=== PATIENT | female | born 2000 | race Two or more races ===

== ENCOUNTER 2024-09-05 18:08 | Emergency (ER) | payer BC, SELFPAY ==
[2024-09-05 18:10] VITALS: BMI 35.4
[2024-09-05 18:14] VITALS: BP 122/82; PULSE 79; RESP 16; TEMP 36.8; O2SAT 98
--- NOTE | 2024-09-05 18:18 | XR_ITS ---
EXAMINATION: Ankle, left 3 views . Technique: Ankle AP, oblique, lateral 3 views Date and time of exam: September 05, 2024 1842 hours INDICATIONS: Patient fell today with injury to the ankle, ankle pain. FINDINGS: Lateral malleolar soft tissue swelling No acute fracture No ankle dislocation IMPRESSION: No acute fracture
--- NOTE | 2024-09-05 18:18 | PD.EDANKLE ---
Lower Extremity Injury RME/HPI General Chief Complaint: Ankle/Foot Injury Stated Complaint: L ANKLE INJURY Time Seen by Provider: 09/05/24 18:10 Arrival date/time: 09/05/24 18:08 RME / HPI RME / HPI Narrative: 24-year-old female presents to the ED with a complaint of left ankle pain secondary to twisting her ankle in a pothole earlier this morning. She denies previous injury to the ankle. She is unable to bear weight. She does have numbness and tingling to her toes. She denies any other injuries. Related Data Previous Rx's ?Medication ?Instructions ?Recorded ibuprofen 600 mg tablet 600 mg PO TID PRN pain #30 tabs 09/05/24 Allergies Allergy/AdvReac Type Severity Reaction Status Date / Time No Known Allergies Allergy Verified 09/05/24 18:09 Review of Systems Review of Systems Systems Reviewed: All systems reviewed, normal except as documented Past Medical History Past Medical History NEUROLOGIC: Negative Neurological Disorders or Seizures CARDIAC: Negative Cardiac Disorders or Congestive Heart Failure RESPIRATORY: Negative Chronic Obstructive Pulmonary Disease (COPD) GASTROINTESTINAL: Negative Gastrointestinal Disorders GENITOURINARY: Negative Genitourinary Disorders or Renal Disease MUSCULOSKELETAL: Negative Musculoskeletal Disorders ENDOCRINE: Negative Endocrine Disorders, Diabetes Mellitus Type 1 or Diabetes Mellitus Type 2 HEMATOLOGIC: Negative Blood Disorders OTHER HISTORY: Negative Hospitalization, Autoimmune Disease, Shingles, Falls, Blood Transfusions, Blood Transfusion Reaction or Anesthesia Reactions Family History FAMILY HISTORY: Negative Family Psychiatric Problems, Family Respiratory Disorders, Family Cardiac Disorders, Family Gastrointestinal Problems, Family Cancer, Family Surgery or Family Anesthesia Reaction Social History SMOKING STATUS: Never smoker ED Exam Narrative Physical exam: Alert and oriented 25-year-old female, no acute distress, sitting in wheelchair. Left distal tib-fib tenderness on the left. Tenderness to medial and lateral malleolus. Positive pain with inversion and eversion of the ankle. Positive pain with plantarflexion, dorsiflexion. No tenderness to palpation of the foot or toes of the left foot. Course Course Course Narrative: 24-year-old female presents to the ED with a complaint of left ankle pain secondary to twisting her ankle in a pothole earlier this morning. She denies previous injury to the ankle. She is unable to bear weight. She doAlert and oriented 25-year-old female, no acute distress, sitting in wheelchair. Left distal tib-fib tenderness on the left. Tenderness to medial and lateral malleolus. Positive pain with inversion and eversion of the ankle. Positive pain with plantarflexion, dorsiflexion. No tenderness to palpation of the foot or toes of the left foot.x-rays obtained of the left ankle es have numbness and tingling to her toes. She denies any other injuries. X-rays obtained of the left ankle. FINDINGS: Lateral malleolar soft tissue swelling. No acute fracture. No ankle dislocation. IMPRESSION: No acute fracture Patient given Motrin 600mg PO. Quality Measures none Orders Category Date Time Status jamie wrap [Splint / Immobilizer] STAT Care 09/05/24 20:22 Active XR ankle comp LT min 3V Stat Exams 09/05/24 18:18 Completed Ibuprofen Tab [Motrin Tab] Med 09/05/24 18:18 Discontinued 600 mg PO X1 ONE Vital Signs Vital signs: Vital Signs Temperature 98.3 F 09/05/24 18:14 Pulse Rate 79 09/05/24 18:14 Respiratory Rate 16 09/05/24 18:14 Blood Pressure 122/82 09/05/24 18:14 Pulse Oximetry (%) 98 09/05/24 18:14 Oxygen Delivery Method Room Air 09/05/24 18:14 Extremity Injury, Lower MDM Narrative MDM Narrative:: 24-year-old female presents to the ED with a complaint of left ankle pain secondary to twisting her ankle in a pothole earlier this morning. She denies previous injury to the ankle. She is unable to bear weight. She doAlert and oriented 25-year-old female, no acute distress, sitting in wheelchair. Left distal tib-fib tenderness on the left. Tenderness to medial and lateral malleolus. Positive pain with inversion and eversion of the ankle. Positive pain with plantarflexion, dorsiflexion. No tenderness to palpation of the foot or toes of the left foot.x-rays obtained of the left ankle es have numbness and tingling to her toes. She denies any other injuries. X-rays obtained of the left ankle. FINDINGS: Lateral malleolar soft tissue swelling. No acute fracture. No ankle dislocation. IMPRESSION: No acute fracture. Patient given Motrin 600mg PO. Jamie wrap applied to left ankle. Patient has own crutches. Patient data External records reviewed:: None Clinical information provided by:: patient Social determinants that could affect healthcare access:: none Patient has the following chronic illnesses:: None How is presenting disease/condition affected by chronic disease/condition?: no chronic disease Evaluation data The following diagnostics were reviewed and interpreted by me:: radiology exam(s) Lab and/or radiology exams considered but not ordered:: N/A Interpretation Summary: XR left Ankle: FINDINGS: Lateral malleolar soft tissue swelling. No acute fracture. No ankle dislocation. IMPRESSION: No acute fracture Medications / Prescriptions Medications or Prescriptions considered but not ordered:: N/A Medication administrations:: Medication Administration History Discontinued Medications Ibuprofen (Ibuprofen Tab 600 Mg Tablet) 600 mg PO X1 ONE Stop: 09/05/24 18:19 Last Admin: 09/05/24 20:02 Dose: Not Given Documented By: ОЛЬГА Non-Admin Reason: Patient Refused Motrin 600 mg 1 tab p.o. Consultations Consultation(s) initiated? (list below): No Diagnosis Extremity Injury, Lower Differential Diagnosis: ankle sprain and strain and ankle fracture Most likely diagnosis given after review of the tests above:: Ankle sprain/strain Admission Indicated Admission indicated?: not indicated Explain why admission is indicated or not indicated:: Patient is stable for discharge Admission Request Was there a request for admission?: No Disposition Plan Disposition Plan: Discharge Discharge Attestation Discharge Attestation: The patient and all family members were given an opportunity to ask questions and understood the discharge instructions. Discharge instructions specifically effects, indications for sooner follow up or return to the emergency department, and the expected course of current diagnosis. Patient condition: Stable Discharge Plan Plan Patient Disposition: HOME (Self Care) Discharge Disposition comment: Stable and improved Prescriptions/Referrals Prescriptions/Med Rec: New ibuprofen 600 mg tablet 600 mg PO TID PRN (Reason: pain) Qty: 30 0RF Referrals: No Primary/Family,Physician [Primary Care Provider] - In 1 week Problem List Clinical Impression: Ankle sprain and strain Patient/Caregiver Discharge Instructions Education Materials: ED Ankle Sprain (Adult) Additional Instructions: Use the crutches and Jamie wrap until you are able to fully bear weight. Follow-up with your primary care physician in 24 to 48 hours. Return to the ED for any new or worsening symptoms. Print Language: Icelandic Stand Alone Forms: Rosa Award Info., Patient Portal Info Letter PA/CATH LAB RADIOLOGY TECHNICIAN Supervising Physician PA/CATH LAB RADIOLOGY TECHNICIAN Supervising Physician: Dr Baker
== END 2024-09-05 20:49 | disposition home or self-care (01) ==
PROVIDERS: Emergency Provider Emergency Medicine
DX: S43.432A Superior glenoid labrum lesion of left shoulder, initial encounter (principal); X50.1XXA Overexertion from prolonged static or awkward postures, initial encounter
CPT/HCPCS: 73610; 99283